=== PATIENT | male | born 1955 | race Caucasian/White ===

== ENCOUNTER 2020-01-18 15:20 | Inpatient (IN) | payer OTHER ==
[~2020-01-18] VITALS: Ht 172.7 cm; Wt 99.8 kg
[2020-01-18] MEDS ORDERED: IV NORMAL SALINE 1000ML BAG 1,000 ML IV ONE ×3 (15:45→16:45)
--- NOTE | 2020-01-18 15:47 | PHYS DOC ---
General Adult EDM: Chief Complaint: TRAUMA ALERT HPI: HPI: 65-year-old male EMS reported past medical history of seizures (unsure it pt takes medications), presents to the ED brought in by EMS after family called 911. EMS was called 3 times. On the first encounter patient had fallen down 4 steps and hit his head, patient had decision-making capacity and refused to come to the emergency department. Second EMS call was for seizure-like activity, no seizure when EMS showed up. Third ems call was concerned for altered mental status, EMS witnessed a 2-minute seizure that resolved with 5 mg of IV Versed. Glucose was 114. History and review of systems are unobtainable due to patient 's mental status and aphasia. Allergies: Allergies: Allergies Coded Allergies Type Severity Reaction Last Updated Verified Unable to Assess 01/18/20 No Physical Exam: PE: Constitutional: alert, not oriented, no distress, states "I'm sorry, ok," follows commands but when asked his name states "6, 7, 8, 9" - has inappropriate speech, obese HENT: bilateral external ears normal, oropharynx moist-dentures in place, tongue laceration to tip of tongue, no oral exudates, nose normal. [] Eyes: PERRLA-3mm bl, EOMI, conjunctiva normal, no discharge, no hemotympanum, no septal hematoma, c-collar in place by EMS Neck: Normal range of motion, no tenderness, supple, no stridor. [] Cardiovascular: Tachycardic rhythm, no murmur [] Lungs & Thorax: Bilateral breath sounds clear to auscultation [] Abdomen: Bowel sounds normal, soft, no tenderness, no masses, no pulsatile masses, no urinary or bowel incontinence, anal sensation intact Skin: Warm, dry, no erythema, no rash. [] Back: No tenderness, no CVA tenderness. [] Extremities: No tenderness, no cyanosis, no clubbing, no edema, moves all 4 extr emities -decreased movement of right upper extremity and right lower extremity Neurologic: Alert and oriented X 3, normal motor function, normal sensory function, no focal deficits noted. [] Psychologic: Affect normal, judgement normal, mood normal. [] Current Patient Data: Labs: Laboratory Tests Test 01/18/20 15:28 Glucose (Fingerstick) 114 mg/dL (70-99) H EKG: EKG: Sinus tachycardia at 104 bpm, left axis deviation, normal intervals, no T wave inversions, no ST elevations or ST depressions Radiology/Procedures: Radiology/Procedures: [IMAGING REPORT Signed PATIENT: LOI ESQUIVEL ACCOUNT: [id number] : 1955 LOCATION: ER AGE: 65 SEX: M EXAM STATUS: PRE ER ORD. PHYSICIAN: CHARLEE CAMEJO DO REASON: seizure PROCEDURE: CT HEAD AND CERVICAL SPINE WO EXAM: CT Head without IV contrast INDICATION: Reason: seizure / Spl. Instructions: / History: TECHNIQUE: Multi-detector row CT images were obtained of the head without the use of IV contrast. All CT scans performed at this facility utilize dose optimization techniques as appropriate to the exam, including the following: Automated exposure control and adjustment of the mA and/or KV according to patient size (this includes techniques or standardized protocols for targeted exams where dose is indication/reason for exam). COMPARISON: None FINDINGS: BRAIN PARENCHYMA: No evidence of acute intraparenchymal hemorrhage or infarct. Encephalomalacia in the left parafalcine superior frontal lobe is present. There is gas and radiopaque density in a 3 cm ovoid, masslike area of low density in the left superior frontal lobe that could reflect old postop changes. This is best illustrated on images 22 and 23 on axial image series 2. VENTRICLES & EXTRA-AXIAL SPACES: Ventricles are within normal limits. Basilar cisterns are patent. No pathologic extra-axial fluid collection or mass. ORBITS: Orbital contents are unremarkable. SINUSES: Visualized paranasal sinuses and mastoid air cells are clear. OSSEOUS & SOFT TISSUES: Calvarium shows healed left frontal craniotomy. No acute or aggressive appearing osseous lesions. IMPRESSION: 1. No acute intracranial pathology. 2. Postop changes from left frontal craniotomy with residual low density in the superior left frontal lobe and adjacent encephalomalacia. These could reflect changes from previous biopsy or resection of a mass. Recommend correlation with the patient's medical and surgical history. There are associated findings suggesting a . EXAM: CT Cervical Spine without IV contrast INDICATION: Reason: seizure / Spl. Instructions: / History: TECHNIQUE: Multi-detector row CT images were obtained through the cervical spine without the use of IV contrast. Post-processing sagittal and coronal reconstructed images were obtained for interpretation. All CT scans performed at this facility utilize dose optimization techniques as appropriate to the exam, including the following: Automated exposure control and adjustment of the mA and/or KV according to patient size (this includes techniques or standardized protocols for targeted exams where dose is indication/reason for exam). COMPARISON: None FINDINGS: CRANIOCERVICAL JUNCTION: Unremarkable. ALIGNMENT: Alignment is within normal limits. OSSEOUS: No evidence of fracture or bone destruction. DISC SPACES: Mild disc space narrowing and minimal endplate irregularity most conspicuous at C5-C6 and C6-C7. FACET JOINTS: Unremarkable. SPINAL CANAL: Unremarkable. NEUROFORAMINA: Unremarkable. SOFT TISSUES: Unremarkable. IMPRESSION: Minimal cervical spinal degenerative spondylosis. Otherwise unremarkable. Electronically signed by: Kiran Nino MD (01/18/2020 4:27 PM) [facility] [place] DICTATED and SIGNED BY: KIRAN NINO MD DATE: 01/18/201626 IMAGING REPORT Signed PATIENT: LOI ESQUIVEL ACCOUNT: [id number] : 1955 LOCATION: ER AGE: 65 SEX: M EXAM STATUS: REG ER ORD. PHYSICIAN: CHARLEE CAMEJO DO REASON: seizure PROCEDURE: CT ANGIOGRAPHY HEAD AND NECK STUDY: CT angiography of the head and neck INDICATION: Seizure. COMPARISON: No prior angiographic study is available for review. TECHNIQUE: Axial CT imaging of the head and neck utilizing angiography protocol and performed after the intravenous administration of 70 cc Omnipaque 350 contrast. Multiplanar reformats and 3D MIP acquisitions were obtained. Encountered areas of stenosis are measured per NASCET criteria. One or more of the following individualized dose reduction techniques were utilized for this examination: 1. Automated exposure control 2. Adjustment of the mA and/or kV according to patient size 3. Use of iterative reconstruction technique. FINDINGS: CTA NECK: Arch/Proximal Great Vessels: Predominantly noncalcified atheromatous plaque at the aortic arch. Small area of plaque ulceration at the arch as seen on image 120 series 5. The great vessel origins are patent. Area of kinking of the right subclavian artery at the location of the intercostal artery origin but without a flow-limiting stenosis. The left subclavian artery and both common carotid arteries are unremarkable. Carotid Bifurcation/Cervical ICA: Mild atheromatous plaque at and just above the carotid bulb on the right. No flow-limiting stenosis on either side to the skull base. Vertebral Arteries: The left extra cranial vertebral artery is dominant. No flow-limiting stenosis or dissection. CTA HEAD: Posterior Circulation: The intracranial left vertebral artery is dominant. The right vertebral artery does still contribute to basilar flow. No flow-limiting stenosis. The basilar artery is patent as are the adequately assessed vertebral and basilar artery branch vessels. Mainly just the P1 and P2 segments of both the posterior cerebral arteries are adequately assessed due to bolus timing. No flow-limiting stenosis or occlusion is identified. Anterior Circulation: Patent intracranial internal carotid arteries. No occlusion or flow-limiting stenosis of the central branches of either middle or anterior cerebral artery. Note is made that the more peripheral segments are difficult to closely evaluate due to bolus timing. No aneurysm is seen. Veins: Patent dural sinuses and major intracerebral veins. MISCELLANEOUS: No nodule at the upper lungs is seen that would warrant dedicated follow-up. Cervical spine findings fully detailed on the dedicated CT of this region. Left paramidline frontal lobe encephalomalacia with ex vacuo dilatation of the adjacent lateral ventricle as described on the unenhanced CT. Overlying craniotomy defect. No pathologic enhancement is appreciated in this region IMPRESSION: CT Angio Neck: 1. No hemodynamically significant stenosis or dissection of the extracranial carotid or vertebral arteries. 2. Predominantly noncalcified atheromatous plaque at the aortic arch with a small area of plaque ulceration at the arch. What is seen of the aorta is nonaneurysmal. CT Angio Head: 1. Limited assessment of the peripheral arterial segments due to bolus timing. There is no flow-limiting stenosis or occlusion of the central anterior or posterior cerebral circulation. 2. As detailed on the noncontrast CT head, left frontal craniotomy with subjacent encephalomalacia. Electronically signed by: MARTHA LOZANO MD (01/18/2020 4:36 PM) [id number] DICTATED and SIGNED BY: MARTHA LOZANO MD DATE: 01/18/20 163 Course & Med Decision Making: Course & Med Decision Making Pertinent Labs and Imaging studies reviewed. (See chart for details) Concern for uncontrolled seizure with head trauma and postictal confusion-stroke work-up started. Patient with resolution of symptoms within 30 minutes upon ED presentation. Patient reports he has a history of GERD and hypertension. Reports a history of seizure disorder but no seizure in the past 20 years. Is unaware of any prior history of stroke. CT imaging concerning for ELSA territory infarct with left frontal craniotomy. Patient's labs show renal insufficiency (no prior for baseline comparison) and elevated lactic acidosis. Repeat lactic acid pending. Patient was given IV fluids and Keppra in the ED. TIA on my differential. Patient and agreed to be admitted for MRI and neurology consultation, pt was stable at time of admission. I have spoken with the patient and/or caregivers. I have explained the patient's condition, diagnosis and treatment plan based on the information available to me at this time. I have answered the patient's and/or caregivers questions and answered any concerns. The patient and/or caregivers have as good an understanding of the patient's diagnosis, condition and treatment plan as can be expected at this point. The patient has been stabilized within the capability of the emergency department. The patient will be transported for further care and management or will be moved to an observation or inpatient service. I have communicated with the staff or medical practitioner taking over this patient's care. Trudy Disclaimer: Trudy Disclaimer: This electronic medical record was generated, in whole or in part, using a voice recognition dictation system. Departure Departure Impression: Primary Impression: Seizure Additional Impressions: Renal insufficiency Old cerebrovascular accident (CVA) without late effect Head trauma Elevated lactic acid level Disposition: ADMITTED INPATIENT Admitting Physician: JOSE ALBERTO (Dr. Chang) Condition: STABLE Justicifation of Admission Dx: Justifications for Admission: Justification of Admission Dx: Yes Stroke - Ischemic: Stroke-Ischemic Comments: seizure CHARLEE SALAZAR DO Jan 18, 2020 15:47
[2020-01-18 15:48] LABS: BASO # 0.1 x10^3/uL (0.0-0.2); BASO % 1 % (0-3); EOS # 0.2 x10^3/uL (0.0-0.7); EOS % 2 % (0-3); HEMATOCRIT 45.1 % (39.0-53.0); HEMOGLOBIN 15.1 g/dL (13.0-17.5); LYMPH # 2.1 x10^3/uL (1.0-4.8); LYMPH % 28 % (24-48); MEAN CORPUSCULAR HEMOGLOBIN 28 pg (25-35); MEAN CORPUSCULAR HGB CONC 34 g/dL (31-37); MEAN CORPUSCULAR VOLUME 83 fL (79-100); MONO # 0.4 x10^3/uL (0.0-1.1); MONO % 5 % (0-9); NEUT # 4.7 x10^3/uL (1.8-7.7); NEUT % 64 % (31-73); PLATELET COUNT 210 x10^3/uL (140-400); RED BLOOD COUNT 5.45 x10^6/uL (4.30-5.70); RED CELL DISTRIBUTION WIDTH 15.1 % (11.5-14.5); WHITE BLOOD COUNT 7.4 x10^3/uL (4.0-11.0)
[2020-01-18 15:58] LABS: CALCIUM 9.4 mg/dL (8.5-10.1); CREATININE 1.4 mg/dL (0.7-1.3); POTASSIUM 4.2 mmol/L (3.5-5.1)
[2020-01-18] MEDS ORDERED: levETIRAcetam 1,000 MG in IV DEXTROSE 5% 100ML 100 ML IV ONE (16:00)
[2020-01-18 16:02] LABS: ACETAMIN < 2 mcg/ml (10-30); ETHANOL < 10 mg/dL (0-10); SALIC < 2.8 mg/dL (2.8-20.0)
[2020-01-18 16:04] LABS: ALBUMIN 3.8 g/dL (3.4-5.0); MAGNESIUM 2.2 mg/dL (1.8-2.4); TOTAL BILIRUBIN 1.1 mg/dL (0.2-1.0); TOTAL PROTEIN 7.6 g/dL (6.4-8.2)
[2020-01-18] MEDS ORDERED: CONTRAST GIVEN. MC PRN (16:15)
[2020-01-18] MEDS ORDERED: IOHEXOL 350 MG/ML 100 ML VIAL. IV ONE (16:15)
--- NOTE | 2020-01-18 16:30 | RAD ---
EXAM: CT Head without IV contrast INDICATION: Reason: seizure / Spl. Instructions: / History: TECHNIQUE: Multi-detector row CT images were obtained of the head without the use of IV contrast. All CT scans performed at this facility utilize dose optimization techniques as appropriate to the exam, including the following: Automated exposure control and adjustment of the mA and/or KV according to patient size (this includes techniques or standardized protocols for targeted exams where dose is indication/reason for exam). COMPARISON: None FINDINGS: BRAIN PARENCHYMA: No evidence of acute intraparenchymal hemorrhage or infarct. Encephalomalacia in the left parafalcine superior frontal lobe is present. There is gas and radiopaque density in a 3 cm ovoid, masslike area of low density in the left superior frontal lobe that could reflect old postop changes. This is best illustrated on images 22 and 23 on axial image series 2. VENTRICLES & EXTRA-AXIAL SPACES: Ventricles are within normal limits. Basilar cisterns are patent. No pathologic extra-axial fluid collection or mass. ORBITS: Orbital contents are unremarkable. SINUSES: Visualized paranasal sinuses and mastoid air cells are clear. OSSEOUS & SOFT TISSUES: Calvarium shows healed left frontal craniotomy. No acute or aggressive appearing osseous lesions. IMPRESSION: 1. No acute intracranial pathology. 2. Postop changes from left frontal craniotomy with residual low density in the superior left frontal lobe and adjacent encephalomalacia. These could reflect changes from previous biopsy or resection of a mass. Recommend correlation with the patient's medical and surgical history. 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 EXAM: CT Cervical Spine without IV contrast INDICATION: Reason: seizure / Spl. Instructions: / History: TECHNIQUE: Multi-detector row CT images were obtained through the cervical spine without the use of IV contrast. Post-processing sagittal and coronal reconstructed images were obtained for interpretation. All CT scans performed at this facility utilize dose optimization techniques as appropriate to the exam, including the following: Automated exposure control and adjustment of the mA and/or KV according to patient size (this includes techniques or standardized protocols for targeted exams where dose is indication/reason for exam). COMPARISON: None FINDINGS: CRANIOCERVICAL JUNCTION: Unremarkable. ALIGNMENT: Alignment is within normal limits. OSSEOUS: No evidence of fracture or bone destruction. DISC SPACES: Mild disc space narrowing and minimal endplate irregularity most conspicuous at C5-C6 and C6-C7. FACET JOINTS: Unremarkable. SPINAL CANAL: Unremarkable. NEUROFORAMINA: Unremarkable. SOFT TISSUES: Unremarkable. IMPRESSION: Minimal cervical spinal degenerative spondylosis. Otherwise unremarkable. Electronically signed by: Chang Nino MD (01/18/2020 4:27 PM) [facility] [place]
--- NOTE | 2020-01-18 16:39 | RAD ---
STUDY: CT angiography of the head and neck INDICATION: Seizure. COMPARISON: No prior angiographic study is available for review. TECHNIQUE: Axial CT imaging of the head and neck utilizing angiography protocol and performed after the intravenous administration of 70 cc Omnipaque 350 contrast. Multiplanar reformats and 3D MIP acquisitions were obtained. Encountered areas of stenosis are measured per NASCET criteria. One or more of the following individualized dose reduction techniques were utilized for this examination: 1. Automated exposure control 2. Adjustment of the mA and/or kV according to patient size 3. Use of iterative reconstruction technique. FINDINGS: CTA NECK: Arch/Proximal Great Vessels: Predominantly noncalcified atheromatous plaque at the aortic arch. Small area of plaque ulceration at the arch as seen on image 120 series 5. The great vessel origins are patent. Area of kinking of the right subclavian artery at the location of the intercostal artery origin but without a flow-limiting stenosis. The left subclavian artery and both common carotid arteries are unremarkable. Carotid Bifurcation/Cervical ICA: Mild atheromatous plaque at and just above the carotid bulb on the right. No flow-limiting stenosis on either side to the skull base. Vertebral Arteries: The left extra cranial vertebral artery is dominant. No flow-limiting stenosis or dissection. CTA HEAD: Posterior Circulation: The intracranial left vertebral artery is dominant. The right vertebral artery does still contribute to basilar flow. No flow-limiting stenosis. The basilar artery is patent as are the adequately assessed vertebral and basilar artery branch vessels. Mainly just the P1 and P2 segments of both the posterior cerebral arteries are adequately assessed due to bolus timing. No flow-limiting stenosis or occlusion is identified. Anterior Circulation: Patent intracranial internal carotid arteries. No occlusion or flow-limiting stenosis of the central branches of either middle or anterior cerebral artery. Note is made that the more peripheral segments are difficult to closely evaluate due to bolus timing. No aneurysm is seen. Veins: Patent dural sinuses and major intracerebral veins. MISCELLANEOUS: No nodule at the upper lungs is seen that would warrant dedicated follow-up. Cervical spine findings fully detailed on the dedicated CT of this region. Left paramidline frontal lobe encephalomalacia with ex vacuo dilatation of the adjacent lateral ventricle as described on the unenhanced CT. Overlying craniotomy defect. No pathologic enhancement is appreciated in this region IMPRESSION: CT Angio Neck: 1. No hemodynamically significant stenosis or dissection of the extracranial carotid or vertebral arteries. 2. Predominantly noncalcified atheromatous plaque at the aortic arch with a small area of plaque ulceration at the arch. What is seen of the aorta is nonaneurysmal. CT Angio Head: 1. Limited assessment of the peripheral arterial segments due to bolus timing. There is no flow-limiting stenosis or occlusion of the central anterior or posterior cerebral circulation. 2. As detailed on the noncontrast CT head, left frontal craniotomy with subjacent encephalomalacia. Electronically signed by: MARTHA LOZANO MD (01/18/2020 4:36 PM) [id number]
--- NOTE | 2020-01-18 18:03 | PDOC1 ---
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 EMS was called 3 times. Initially he had fallen off a ladder and struck his head, and EMS assessed no neurological problems patient refused to the ED. Minutes after EMS left with his went to the house she returned to see him shaking on the ground, all 4 limbs and he was not able to respond to her, but EMS noted no seizure activity. And he was resting. His then contacted EMS for the third time when he was noted with significant altered mental status, EMS witnessed a 2-minute seizure that resolved with 5 mg of IV Versed. Glucose was 114. His noted he had complained of hip pain he underwent hip x-ray chest x-ray and CT neck all of which had no acute abnormalities. CT head revealed craniotomy defect and Left paramidline frontal lobe encephalomalacia with ex vacuo dilatation of the adjacent lateral ventricle. CT angiography of head and neck performed as he was noted with some initial right-sided weakness on initial evaluation. EKG showed sinus tachycardia at 104 bpm, left axis deviation, normal intervals, no T wave inversions, no ST elevations or ST depressions. Labs revealed lactic acid of 4.8, normal CBC, NA 137, K4.2, BUN 15, CR 1.4, glucose 114. On my evaluation he shows some mental slowing but is alert and oriented to location month year to date and person. He had no focal neurologic deficits. His is bedside to corroborate he is a bit slow but close to what she considers baseline. She and he also note that he has been having random seizures every year or two for the past 30 years and was only dilantin until 20 years ago when he went 1 year seizure free. He was instructed to stop drinking alcohol previously as it was thought this provoked some of his other seizures, but he has not drank alcohol for "years" now. He has not noted lack of sleep recently. He is an honorably discharged [employer] and retired [employer] worker as well as an ex-smoker for more than a decade. Admitted for further care. Past Medical History Cardiovascular: HTN CENTRAL NERVOUS SYSTEM: Seizure Past Surgical History Past Surgical History: Other (Craniotomy) Family History Family History: Hypertension Social History Smoke: Quit ALCOHOL: none Drugs: None Current Medications Current Medications Current Medications Sodium Chloride 1,000 ml @ 1,000 mls/hr 1X ONCE IV Last administered on 01/18/20at 16:17; Start 01/18/20 at 15:45; Stop 01/18/20 at 16:44; Status DC Levetiracetam 1000 mg/Dextrose 110 ml @ 440 mls/hr 1X ONCE IV Last administered on 01/18/20at 16:17; Start 01/18/20 at 16:00; Stop 01/18/20 at 16:14; Status DC Iohexol (Omnipaque 350 Mg/ml) 70 ml 1X ONCE IV Last administered on 01/18/20at 16:12; Start 01/18/20 at 16:15; Stop 01/18/20 at 16:16; Status DC Info (CONTRAST GIVEN -- Rx MONITORING) 1 each PRN DAILY PRN MC SEE COMMENTS; Start 01/18/20 at 16:15; Stop 01/20/20 at 16:14 Sodium Chloride 1,000 ml @ 1,000 mls/hr 1X ONCE IV Last administered on 01/18/20at 16:45; Start 01/18/20 at 16:45; Stop 01/18/20 at 17:44; Status DC Sodium Chloride 1,000 ml @ 1,000 mls/hr 1X ONCE IV Last administered on 01/18/20at 17:20; Start 01/18/20 at 16:45; Stop 01/18/20 at 17:44; Status DC Allergies Allergies: Coded Allergies: No Known Drug Allergies (Unverified , 01/18/20) ROS General: No: Chills, Night Sweats, Fatigue, Malaise, Appetite, Other PSYCHOLOGICAL ROS: No: Anxiety, Behavioral Disorder, Concentration difficultie, Decreased libido, Depression, Disorientation, Hallucinations, Hostility, Irritablity, Memory difficulties, Mood Swings, Obsessive thoughts, Physical abuse, Sexual abuse, Sleep disturbances, Suicidal ideation, Other Eyes: No Blurry vision, No Decreased vision, No Double vision, No Dry eyes, No Excessive tearing, No Eye Pain, No Itchy Eyes, No Loss of vision, No Photophobia, No Scotomata, No Uses contacts, No Uses glasses, No Other HEENT: No: Heacaches, Visual Changes, Hearing change, Nasal congestion, Nasal discharge, Oral lesions, Sinus pain, Sore Throat, Epistaxis, Sneezing, Snoring, Tinnitus, Vertigo, Vocal changes, Other ALLERGY AND IMMUNOLOGY: No: Hives, Insect Bite Sensitivity, Itchy/Watery Eyes, Nasal Congestion, Post Nasal Drip, Seasonal Allergies, Other Hematological and Lymphatic: No: Bleeding Problems, Blood Clots, Blood Transfusions, Brusing, Night Sweats, Pallor, Swollen Lymph Nodes, Other ENDOCRINE: No: Breast Changes, Galactorrhea, Hair Pattern Changes, Hot Flashes, Malaise/lethargy, Mood Swings, Palpitations, Polydipsia/polyuria, Skin Changes, Temperature Intolerance, Unexpected Weight Changes, Other Breast: No New/Changing Breast Lumps, No Nipple changes, No Nipple discharge, No Other Respiratory: No: Cough, Hemoptysis, Orthopnea, Pleuritic Pain, Shortness of breath, SOB with excertion, Sputum Changes, Stridor, Tachypnea, Wheezing, Other Cardiovascular: No Chest Pain, No Palpitations, No Orthopnea, No Paroxysmal Noc. Dyspnea, No Edema, No Lt Headedness, No Other Gastrointestinal: No Nausea, No Vomiting, No Abdominal Pain, No Diarrhea, No Constipation, No Melena, No Hematochezia, No Other Genitourinary: No Dysuria, No Frequency, No Incontinence, No Hematuria, No Retention, No Discharge, No Urgency, No Pain, No Flank Pain, No Other, No , No , No , No , No , No , No Musculoskeletal: No Gait Disturbance, No Joint Pain, No Joint Stiffness, No Joint Swelling, No Muscle Pain, No Muscular Weakness, No Pain In:, No Swelling In:, No Other Neurological: Yes Memory Loss, Yes Seizures; No Behavorial Changes, No Bowel/Bladder ControlChng, No Confusion, No Dizziness, No Gait Disturbance, No Headaches, No Impaired Coord/balance, No Numbness/Tingling, No Speech Problems, No Tremors, No Visual Changes, No Weakness, No Other Skin: No Dry Skin, No Eczema, No Hair Changes, No Lumps, No Mole Changes, No Mottling, No Nail Changes, No Pruritus, No Rash, No Skin Lesion Changes, No Other, No Acne Physical Exam General: Alert, Oriented X3, Cooperative, No acute distress HEENT: Atraumatic, PERRLA, EOMI, Mucous membr. moist/pink Lungs: Clear to auscultation, Normal air movement Heart: S1S2, RRR, no thrills, no rubs, no gallops, no murmurs Abdomen: Normal bowel sounds, Soft, No tenderness, No hepatosplenomegaly, No masses Rectal Exam: not examined Extremities: No clubbing, No cyanosis, No edema, Normal pulses, No tenderness/swelling Skin: No rashes, No breakdown, No significant lesion Neuro: Normal gait, Normal speech, Strength at 5/5 X4 ext, Normal tone, Sensation intact, Cranial nerves 3-12 NL, Reflexes 2+ Psych/Mental Status: Mental status NL, Mood NL Vitals Vitals Vital Signs Date Time Temp Pulse Resp B/P (MAP) Pulse Ox O2 Delivery O2 Flow Rate FiO2 01/18/20 16:35 105 18 Room Air 01/18/20 15:41 98.7 149/83 (105) 89 98.7 Labs Labs Laboratory Tests Test 01/18/20 15:28 01/18/20 15:35 Glucose (Fingerstick) 114 mg/dL (70-99) White Blood Count 7.4 x10^3/uL (4.0-11.0) Red Blood Count 5.45 x10^6/uL (4.30-5.70) Hemoglobin 15.1 g/dL (13.0-17.5) Hematocrit 45.1 % (39.0-53.0) Mean Corpuscular Volume 83 fL (79-100) Mean Corpuscular Hemoglobin 28 pg (25-35) Mean Corpuscular Hemoglobin Concent 34 g/dL (31-37) Red Cell Distribution Width 15.1 % (11.5-14.5) Platelet Count 210 x10^3/uL (140-400) Neutrophils (%) (Auto) 64 % (31-73) Lymphocytes (%) (Auto) 28 % (24-48) Monocytes (%) (Auto) 5 % (0-9) Eosinophils (%) (Auto) 2 % (0-3) Basophils (%) (Auto) 1 % (0-3) Neutrophils # (Auto) 4.7 x10^3/uL (1.8-7.7) Lymphocytes # (Auto) 2.1 x10^3/uL (1.0-4.8) Monocytes # (Auto) 0.4 x10^3/uL (0.0-1.1) Eosinophils # (Auto) 0.2 x10^3/uL (0.0-0.7) Basophils # (Auto) 0.1 x10^3/uL (0.0-0.2) Sodium Level 137 mmol/L (136-145) Potassium Level 4.2 mmol/L (3.5-5.1) Chloride Level 102 mmol/L (98-107) Carbon Dioxide Level 25 mmol/L (21-32) Anion Gap 10 (6-14) Blood Urea Nitrogen 15 mg/dL (8-26) Creatinine 1.4 mg/dL (0.7-1.3) Estimated GFR (Cockcroft-Gault) 51.0 BUN/Creatinine Ratio 11 (6-20) Glucose Level 99 mg/dL (70-99) Lactic Acid Level 4.8 mmol/L (0.4-2.0) Calcium Level 9.4 mg/dL (8.5-10.1) Magnesium Level 2.2 mg/dL (1.8-2.4) Total Bilirubin 1.1 mg/dL (0.2-1.0) Aspartate Amino Transf (AST/SGOT) 25 U/L (15-37) Alanine Aminotransferase (ALT/SGPT) 20 U/L (16-63) Alkaline Phosphatase 81 U/L (46-116) Ammonia 15 mcmol/L (11-34) Creatine Kinase 186 U/L (39-308) Troponin I Quantitative < 0.017 ng/mL (0.000-0.055) Total Protein 7.6 g/dL (6.4-8.2) Albumin 3.8 g/dL (3.4-5.0) Albumin/Globulin Ratio 1.0 (1.0-1.7) Salicylates Level < 2.8 mg/dL (2.8-20.0) Salicylate Last Dose Date Unknown Salicylate Last Dose Time Unknown Acetaminophen Level < 2 mcg/ml (10-30) Acetaminophen Last Dose Date Unknown Acetaminophen Last Dose Time Unknown Ethyl Alcohol Level < 10 mg/dL (0-10) Laboratory Tests Test 01/18/20 15:28 01/18/20 15:35 Glucose (Fingerstick) 114 mg/dL (70-99) White Blood Count 7.4 x10^3/uL (4.0-11.0) Red Blood Count 5.45 x10^6/uL (4.30-5.70) Hemoglobin 15.1 g/dL (13.0-17.5) Hematocrit 45.1 % (39.0-53.0) Mean Corpuscular Volume 83 fL (79-100) Mean Corpuscular Hemoglobin 28 pg (25-35) Mean Corpuscular Hemoglobin Concent 34 g/dL (31-37) Red Cell Distribution Width 15.1 % (11.5-14.5) Platelet Count 210 x10^3/uL (140-400) Neutrophils (%) (Auto) 64 % (31-73) Lymphocytes (%) (Auto) 28 % (24-48) Monocytes (%) (Auto) 5 % (0-9) Eosinophils (%) (Auto) 2 % (0-3) Basophils (%) (Auto) 1 % (0-3) Neutrophils # (Auto) 4.7 x10^3/uL (1.8-7.7) Lymphocytes # (Auto) 2.1 x10^3/uL (1.0-4.8) Monocytes # (Auto) 0.4 x10^3/uL (0.0-1.1) Eosinophils # (Auto) 0.2 x10^3/uL (0.0-0.7) Basophils # (Auto) 0.1 x10^3/uL (0.0-0.2) Sodium Level 137 mmol/L (136-145) Potassium Level 4.2 mmol/L (3.5-5.1) Chloride Level 102 mmol/L (98-107) Carbon Dioxide Level 25 mmol/L (21-32) Anion Gap 10 (6-14) Blood Urea Nitrogen 15 mg/dL (8-26) Creatinine 1.4 mg/dL (0.7-1.3) Estimated GFR (Cockcroft-Gault) 51.0 BUN/Creatinine Ratio 11 (6-20) Glucose Level 99 mg/dL (70-99) Lactic Acid Level 4.8 mmol/L (0.4-2.0) Calcium Level 9.4 mg/dL (8.5-10.1) Magnesium Level 2.2 mg/dL (1.8-2.4) Total Bilirubin 1.1 mg/dL (0.2-1.0) Aspartate Amino Transf (AST/SGOT) 25 U/L (15-37) Alanine Aminotransferase (ALT/SGPT) 20 U/L (16-63) Alkaline Phosphatase 81 U/L (46-116) Ammonia 15 mcmol/L (11-34) Creatine Kinase 186 U/L (39-308) Troponin I Quantitative < 0.017 ng/mL (0.000-0.055) Total Protein 7.6 g/dL (6.4-8.2) Albumin 3.8 g/dL (3.4-5.0) Albumin/Globulin Ratio 1.0 (1.0-1.7) Salicylates Level < 2.8 mg/dL (2.8-20.0) Salicylate Last Dose Date Unknown Salicylate Last Dose Time Unknown Acetaminophen Level < 2 mcg/ml (10-30) Acetaminophen Last Dose Date Unknown Acetaminophen Last Dose Time Unknown Ethyl Alcohol Level < 10 mg/dL (0-10) Images Images CTA NECK: Arch/Proximal Great Vessels: Predominantly noncalcified atheromatous plaque at the aortic arch. Small area of plaque ulceration at the arch as seen on image 120 series 5. The great vessel origins are patent. Area of kinking of the right subclavian artery at the location of the intercostal artery origin but without a flow-limiting stenosis. The left subclavian artery and both common carotid arteries are unremarkable. Carotid Bifurcation/Cervical ICA: Mild atheromatous plaque at and just above the carotid bulb on the right. No flow-limiting stenosis on either side to the skull base. Vertebral Arteries: The left extra cranial vertebral artery is dominant. No flow-limiting stenosis or dissection. CTA HEAD: Posterior Circulation: The intracranial left vertebral artery is dominant. The right vertebral artery does still contribute to basilar flow. No flow-li miting stenosis. The basilar artery is patent as are the adequately assessed vertebral and basilar artery branch vessels. Mainly just the P1 and P2 segments of both the posterior cerebral arteries are adequately assessed due to bolus timing. No flow-limiting stenosis or occlusion is identified. Anterior Circulation: Patent intracranial internal carotid arteries. No occlusion or flow-limiting stenosis of the central branches of either middle or anterior cerebral artery. Note is made that the more peripheral segments are difficult to closely evaluate due to bolus timing. No aneurysm is seen. Veins: Patent dural sinuses and major intracerebral veins. MISCELLANEOUS: No nodule at the upper lungs is seen that would warrant dedicated follow-up. Cervical spine findings fully detailed on the dedicated CT of this region. Left paramidline frontal lobe encephalomalacia with ex vacuo dilatation of the adjacent lateral ventricle as described on the unenhanced CT. Overlying craniotomy defect. No pathologic enhancement is appreciated in this region IMPRESSION: CT Angio Neck: 1. No hemodynamically significant stenosis or dissection of the extracranial carotid or vertebral arteries. 2. Predominantly noncalcified atheromatous plaque at the aortic arch with a small area of plaque ulceration at the arch. What is seen of the aorta is nonaneurysmal. CT Angio Head: 1. Limited assessment of the peripheral arterial segments due to bolus timing. There is no flow-limiting stenosis or occlusion of the central anterior or posterior cerebral circulation. 2. As detailed on the noncontrast CT head, left frontal craniotomy with subjacent encephalomalacia. EXAM: PORTABLE CHEST 1V INDICATION: Reason: seizure / Spl. Instructions: / History: . TECHNIQUE: Single supine portable AP view COMPARISON: None FINDINGS: Heart is upper normal in size. The great vessels appear unremarkable. Supine portable AP projection. There is no hilar or mediastinal mass. The lungs are hypoventilatory and show prominence of the pulmonary vascular markings centrally. There is no pleural effusion or pneumothorax. There are no significant osseous abnormalities. IMPRESSION: Mild central pulmonary vascular congestion. Otherwise no acute findings on single view chest x-ray. PROCEDURE: PELVIS STUDY DATE: 01/18/2020 CLINICAL INDICATION / HISTORY: Reason: seizure / Spl. Instructions: / History: . TECHNIQUE: Single portable AP view of the pelvis was obtained. COMPARISON: None FINDINGS: The osseous structures are normally mineralized. There is normal bony alignment present with the femoral heads well-seated within the acetabuli. There is no evidence of acute fracture or dislocation identified. The overlying soft tissues are grossly unremarkable. The right hip is in external rotation, partly obscuring evaluation of the right femoral neck. IMPRESSION: Unremarkable examination of the pelvis. Electronically signed by: Kiran Nino MD (01/18/2020 5:47 PM) DICTATED AND SIGNED BY: IKRAN NINO MD DATE: 01/18/20 2066 CC: NO PCP; CHARLEE CAMEJO DO ~ EXAM: CT Head without IV contrast INDICATION: Reason: seizure / Spl. Instructions: / History: TECHNIQUE: Multi-detector row CT images were obtained of the head without the use of IV contrast. All CT scans performed at this facility utilize dose optimization techniques as appropriate to the exam, including the following: Automated exposure control and adjustment of the mA and/or KV according to patient size (this includes techniques or standardized protocols for targeted exams where dose is indication/reason for exam). COMPARISON: None FINDINGS: BRAIN PARENCHYMA: No evidence of acute intraparenchymal hemorrhage or infarct. Encephalomalacia in the left parafalcine superior frontal lobe is present. There is gas and radiopaque density in a 3 cm ovoid, masslike area of low density in the left superior frontal lobe that could reflect old postop changes. This is best illustrated on images 22 and 23 on axial image series 2. VENTRICLES & EXTRA-AXIAL SPACES: Ventricles are within normal limits. Basilar cisterns are patent. No pathologic extra-axial fluid collection or mass. ORBITS: Orbital contents are unremarkable. SINUSES: Visualized paranasal sinuses and mastoid air cells are clear. OSSEOUS & SOFT TISSUES: Calvarium shows healed left frontal craniotomy. No acute or aggressive appearing osseous lesions. IMPRESSION: 1. No acute intracranial pathology. 2. Postop changes from left frontal craniotomy with residual low density in the superior left frontal lobe and adjacent encephalomalacia. These could reflect changes from previous biopsy or resection of a mass. Recommend correlation with the patient's medical and surgical history. 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 EXAM: CT Cervical Spine without IV contrast INDICATION: Reason: seizure / Spl. Instructions: / History: TECHNIQUE: Multi-detector row CT images were obtained through the cervical spine without the use of IV contrast. Post-processing sagittal and coronal reconstructed images were obtained for interpretation. All CT scans performed at this facility utilize dose optimization techniques as appropriate to the exam, including the following: Automated exposure control and adjustment of the mA and/or KV according to patient size (this includes techniques or standardized protocols for targeted exams where dose is indication/reason for exam). COMPARISON: None FINDINGS: CRANIOCERVICAL JUNCTION: Unremarkable. ALIGNMENT: Alignment is within normal limits. OSSEOUS: No evidence of fracture or bone destruction. DISC SPACES: Mild disc space narrowing and minimal endplate irregularity most conspicuous at C5-C6 and C6-C7. FACET JOINTS: Unremarkable. SPINAL CANAL: Unremarkable. NEUROFORAMINA: Unremarkable. SOFT TISSUES: Unremarkable. IMPRESSION: Minimal cervical spinal degenerative spondylosis. Otherwise unremarkable. VTE Prophylaxis Ordered VTE Prophylaxis Devices: No VTE Pharmacological Prophylaxi: Yes Assessment/Plan Assessment/Plan A/P: Seizure - recurrent. given IV keppra. He was remotely on dilantin and is not opposed to this, however at this time no further seizures, will cont keppra and consult neurology Acute encephalopathy - likely post-ictal confusion Right sided weakness - likely post-ictal effect. CTA head and neck negative for occlusion. ASA therapy, consult PT/OT/[employer] and neurology. No indication for tPA as his symptoms resolved Acute Renal insufficiency - likely vasomotor nephropathy, will hydrate H/o craniotomy - he and his note this was for removal of an AVM in the 1980s and he did begin having seizures after that Elevated lactic acid level - almost certainly seizure related, will trend HTN - will reconcile home medications with pharmacy and continue FEN - General diet pending bedside swallow evaluation PPX - heparin SC 5000 u tid FULL CODE Dispo - inpatient for recurrent seizures. Justicifation of Admission Dx: Justifications for Admission: Justification of Admission Dx: Yes NANY GUERRA MD Jan 18, 2020 18:03
[2020-01-18 20:05] VITALS: BP 177/113
[2020-01-18] MEDS ORDERED: IV NORMAL SALINE 1000ML BAG 1,000 ML IV SCH (20:13)
[2020-01-18] MEDS ORDERED: ACETAMINOPHEN 650 MG SUPP.RECT. PR PRN (20:15)
[2020-01-18] MEDS ORDERED: MAGNESIUM HYDROXIDE 2,400 MG/30 ML ORAL.SUSP. PO PRN (20:15)
[2020-01-18] MEDS ORDERED: LABETALOL 20 MG/4 ML DISP.SYRIN. IVP PRN (20:15)
[2020-01-18] MEDS ORDERED: ACETAMINOPHEN 325 MG TABLET. PO PRN (20:15)
[2020-01-18] MEDS ORDERED: ASPIRIN RECTAL 300 MG SUPP. PR PRN (20:15)
[2020-01-18] MEDS ORDERED: ONDANSETRON PF 4 MG/2 ML VIAL. IVP PRN (20:15)
[2020-01-18] MEDS ORDERED: hydrALAZINE 20 MG/ML VIAL. IVP PRN (21:15)
[2020-01-18] MEDS ORDERED: CALC500T30 PO (21:30)
[2020-01-18] MEDS ORDERED: amLODIPine BESYLATE 5 MG TABLET PO SCH (21:30)
[2020-01-18] MEDS ORDERED: MAGN400T30 PO (21:30)
[2020-01-18] MEDS ORDERED: PANT20TA2 PO (21:30)
[2020-01-18] MEDS ORDERED: LISI-130 PO (21:30)
[2020-01-18] MEDS ORDERED: amLODIPine BESYLATE 5 MG TABLET PO ONE ×2 (21:45)
[2020-01-18] MEDS: HEPARIN for SUB-Q USE 5,000 UNIT/ML VIAL. SQ SCH (21:55)
[2020-01-18 22:40] VITALS: BP 157/84
[2020-01-19 02:33] VITALS: BP 127/72
[2020-01-19 05:34] LABS: CALCIUM 8.6 mg/dL (8.5-10.1); GFR 75.2; POTASSIUM 3.9 mmol/L (3.5-5.1)
[2020-01-19 05:40] LABS: CHOLESTEROL/HDL RATIO 6.2
[2020-01-19] MEDS: HEPARIN for SUB-Q USE 5,000 UNIT/ML VIAL. SQ SCH (06:18)
[2020-01-19 07:00] VITALS: BP 142/84
[2020-01-19] MEDS ORDERED: ASPIRIN ENTERIC COATED 325 MG TABLET.DR. PO SCH (08:00)
--- NOTE | 2020-01-19 08:30 | PDOC2 ---
NEUROLOGY CONSULT Date of Service DOS: DATE: 01/19/20 TIME: 08:22 Reason for Consult Reason for Consult: Seizure Referring Physician Referring Physician: Dr. 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 He says that often after concussions, he has a seizure within the next 24 hours. Yesterday he was climbing a ladder and slipped. He is certain that he did not have a seizure at that time. He did hit his head. Emergency medical services came and found no issues and the patient refused transport. Minutes after emergency medical services left, he had convulsive activity. When emergency medical services returned, he had a two-minute seizure for which he was given Versed.. The last time this happened he struck his head with a wrench and had a seizure, that was about 10 years ago. He feels fine this morning and would like to go home. Past Medical History Cardiovascular: HTN, Hyperlipidemia CENTRAL NERVOUS SYSTEM: Seizure, Other (Left frontal arteriovenous malformation) GI: GERD Musculoskeletal: low back pain, Other (Nasal fractures) Renal/: UTI, Benign prostatic enlarg. Past Surgical History Past Surgical History: Other (Left frontal craniotomy) Family History Family History: Other (COPD) Social History Social History , ex-smoker, used to drink heavily but none in several years, no street drugs, retired Current Medications Current Medications Current Medications Sodium Chloride 1,000 ml @ 1,000 mls/hr 1X ONCE IV Last administered on 01/18/20at 16:17; Start 01/18/20 at 15:45; Stop 01/18/20 at 16:44; Status DC Levetiracetam 1000 mg/Dextrose 110 ml @ 440 mls/hr 1X ONCE IV Last administered on 01/18/20at 16:17; Start 01/18/20 at 16:00; Stop 01/18/20 at 16:14; Status DC Iohexol (Omnipaque 350 Mg/ml) 70 ml 1X ONCE IV Last administered on 01/18/20at 16:12; Start 01/18/20 at 16:15; Stop 01/18/20 at 16:16; Status DC Info (CONTRAST GIVEN -- Rx MONITORING) 1 each PRN DAILY PRN MC SEE COMMENTS; Start 01/18/20 at 16:15; Stop 01/20/20 at 16:14 Sodium Chloride 1,000 ml @ 1,000 mls/hr 1X ONCE IV Last administered on 01/18/20at 16:45; Start 01/18/20 at 16:45; Stop 01/18/20 at 17:44; Status DC Sodium Chloride 1,000 ml @ 1,000 mls/hr 1X ONCE IV Last administered on 01/18/20at 17:20; Start 01/18/20 at 16:45; Stop 01/18/20 at 17:44; Status DC Levetiracetam (Keppra) 1,000 mg BID PO ; Start 01/19/20 at 09:00; Stop 01/18/20 at 21:04; Status DC Heparin Sodium (Porcine) (Heparin Sodium) 5,000 unit Q8HRS SQ Last administered on 01/19/20at 06:18; Start 01/18/20 at 22:00 Sodium Chloride 1,000 ml @ 100 mls/hr Q10H IV ; Start 01/18/20 at 20:13; Stop 01/18/20 at 21:14; Status DC Labetalol HCl (Normodyne Iv Push) 10 mg PRN Q10MIN PRN IVP hyperten; Start 01/18/20 at 20:15 Acetaminophen (Tylenol) 650 mg PRN Q6HRS PRN PO TEMP > 100.4F; Start 01/18/20 at 20:15 Acetaminophen (Tylenol Supp) 650 mg PRN Q4HRS PRN WA TEMP > 100.4F; Start 01/18/20 at 20:15 Magnesium Hydroxide (Milk Of Magnesia) 2,400 mg PRN DAILY PRN PO CONSTIPATION; Start 01/18/20 at 20:15 Aspirin (Ecotrin) 325 mg DAILYWBKFT PO ; Start 01/19/20 at 08:00 Aspirin (Aspirin Rectal Supp) 300 mg PRN DAILY PRN WA IF UNABLE TO TAKE PO; Start 01/18/20 at 20:15 Ondansetron HCl (Zofran) 4 mg PRN Q6HRS PRN IVP NAUSEA/VOMITING; Start 01/18/20 at 20:15 Levetiracetam (Keppra) 500 mg Q12HR PO ; Start 01/19/20 at 09:00 Amlodipine Besylate (Norvasc) 5 mg 1X ONCE PO ; Start 01/18/20 at 21:45; Stop 01/18/20 at 21:46; Status DC Amlodipine Besylate (Norvasc) 5 mg 1X ONCE PO ; Start 01/18/20 at 21:45; Stop 01/18/20 at 21:26; Status DC Hydralazine HCl (Apresoline Inj) 10 mg PRN Q4HRS PRN IVP ELEVATED BP, SEE COMMENTS Last administered on 01/18/20at 21:49; Start 01/18/20 at 21:15 Amlodipine Besylate (Norvasc) 10 mg QHS PO ; Start 01/18/20 at 21:30; Stop 01/18/20 at 21:30; Status DC Amlodipine Besylate (Norvasc) 10 mg QHS PO Last administered on 01/18/20at 21:51; Start 01/19/20 at 21:00 Active Scripts Active Reported Protonix (Pantoprazole Sodium) 20 Mg Tablet.dr 20 Mg PO DAILY PRN Calcium (Calcium Carbonate) 500 Mg Tablet 500 Mg PO DAILY Magnesium (Magnesium Oxide) 400 Mg Tablet 400 Mg PO DAILY Lisinopril 40 Mg Tablet 40 Mg PO DAILY Allergies Allergies: Coded Allergies: No Known Drug Allergies (Unverified , 01/18/20) ROS Review of System Negative for fever, chills, weight loss, shortness of breath, chest pain, indigestion, hematochezia, melena, and dysuria. Full 14-point review of systems is negative. Physical Exam Physical Examination General: Well-developed, well-nourished white male in no acute distress HEENT: Normocephalic andatraumatic. Temporal arteriespulsatile and nontender. Neck: Supple without bruit, no meningismus Musculoskeletal: Stability:see neurologic. Gait exam:see neurologic. Tone:see neurologic.Strength:see neurologic. Neurological: Mental Status:intact, orientation, memory, attention span/concentration, language, fund of knowledge normal. Cranial Nerves:Pupils equal and reactive to light, extraocular movements areintact, visual garcia are full to confrontation. Facial sensation is normal. There is no facial asymmetry. Vestibulo-ocular reflex is intact. Palate elevates and tongue protrudes in midline. All other cranial related problems are negative except as mentioned before.Reflexes:2+ and symmetric with flexor plantar responses. Motor:5/5 strength with normal tone and bulk. Coordination:Finger-nose finger and lvzh-[id number] testing are normal. Rapid alternating movements and fine finger movements are intact. Gait:Normal, including tandem, shows a little bit of lack of caution getting out of bed too quickly, becomes entangled in the bed sheets. Sensory:Normal pinprick, vibration, light touch, proprioception. Vitals VITALS Vital Signs Date Time Temp Pulse Resp B/P (MAP) Pulse Ox O2 Delivery O2 Flow Rate FiO2 01/19/20 07:00 98.4 67 18 142/84 (103) 95 Room Air 98.4 01/18/20 16:21 2.0 Labs Labs Laboratory Tests Test 01/18/20 15:28 01/18/20 15:35 01/19/20 00:30 01/19/20 04:30 Glucose (Fingerstick) 114 mg/dL (70-99) White Blood Count 7.4 x10^3/uL (4.0-11.0) Red Blood Count 5.45 x10^6/uL (4.30-5.70) Hemoglobin 15.1 g/dL (13.0-17.5) Hematocrit 45.1 % (39.0-53.0) Mean Corpuscular Volume 83 fL (79-100) Mean Corpuscular Hemoglobin 28 pg (25-35) Mean Corpuscular Hemoglobin Concent 34 g/dL (31-37) Red Cell Distribution Width 15.1 % (11.5-14.5) Platelet Count 210 x10^3/uL (140-400) Neutrophils (%) (Auto) 64 % (31-73) Lymphocytes (%) (Auto) 28 % (24-48) Monocytes (%) (Auto) 5 % (0-9) Eosinophils (%) (Auto) 2 % (0-3) Basophils (%) (Auto) 1 % (0-3) Neutrophils # (Auto) 4.7 x10^3/uL (1.8-7.7) Lymphocytes # (Auto) 2.1 x10^3/uL (1.0-4.8) Monocytes # (Auto) 0.4 x10^3/uL (0.0-1.1) Eosinophils # (Auto) 0.2 x10^3/uL (0.0-0.7) Basophils # (Auto) 0.1 x10^3/uL (0.0-0.2) Sodium Level 137 mmol/L (136-145) 139 mmol/L (136-145) Potassium Level 4.2 mmol/L (3.5-5.1) 3.9 mmol/L (3.5-5.1) Chloride Level 102 mmol/L (98-107) 105 mmol/L (98-107) Carbon Dioxide Level 25 mmol/L (21-32) 25 mmol/L (21-32) Anion Gap 10 (6-14) 9 (6-14) Blood Urea Nitrogen 15 mg/dL (8-26) 13 mg/dL (8-26) Creatinine 1.4 mg/dL (0.7-1.3) 1.0 mg/dL (0.7-1.3) Estimated GFR (Cockcroft-Gault) 51.0 75.2 BUN/Creatinine Ratio 11 (6-20) Glucose Level 99 mg/dL (70-99) 102 mg/dL (70-99) Lactic Acid Level 4.8 mmol/L (0.4-2.0) 1.8 mmol/L (0.4-2.0) Calcium Level 9.4 mg/dL (8.5-10.1) 8.6 mg/dL (8.5-10.1) Magnesium Level 2.2 mg/dL (1.8-2.4) Total Bilirubin 1.1 mg/dL (0.2-1.0) Aspartate Amino Transf (AST/SGOT) 25 U/L (15-37) Alanine Aminotransferase (ALT/SGPT) 20 U/L (16-63) Alkaline Phosphatase 81 U/L (46-116) Ammonia 15 mcmol/L (11-34) Creatine Kinase 186 U/L (39-308) Troponin I Quantitative < 0.017 ng/mL (0.000-0.055) Total Protein 7.6 g/dL (6.4-8.2) Albumin 3.8 g/dL (3.4-5.0) Albumin/Globulin Ratio 1.0 (1.0-1.7) Salicylates Level < 2.8 mg/dL (2.8-20.0) Salicylate Last Dose Date Unknown Salicylate Last Dose Time Unknown Acetaminophen Level < 2 mcg/ml (10-30) Acetaminophen Last Dose Date Unknown Acetaminophen Last Dose Time Unknown Ethyl Alcohol Level < 10 mg/dL (0-10) Phosphorus Level 2.6 mg/dL (2.6-4.7) Thyroid Stimulating Hormone (TSH) 0.569 uIU/mL (0.358-3.74) Triglycerides Level 97 mg/dL (0-150) Cholesterol Level 198 mg/dL (0-200) LDL Cholesterol, Calculated 147 mg/dL (0-100) VLDL Cholesterol, Calculated 19 mg/dL (0-40) Non-HDL Cholesterol Calculated 166 mg/dL (0-129) HDL Cholesterol 32 mg/dL (40-60) Cholesterol/HDL Ratio 6.2 Laboratory Tests Test 01/18/20 15:28 01/18/20 15:35 01/19/20 00:30 01/19/20 04:30 Glucose (Fingerstick) 114 mg/dL (70-99) White Blood Count 7.4 x10^3/uL (4.0-11.0) Red Blood Count 5.45 x10^6/uL (4.30-5.70) Hemoglobin 15.1 g/dL (13.0-17.5) Hematocrit 45.1 % (39.0-53.0) Mean Corpuscular Volume 83 fL (79-100) Mean Corpuscular Hemoglobin 28 pg (25-35) Mean Corpuscular Hemoglobin Concent 34 g/dL (31-37) Red Cell Distribution Width 15.1 % (11.5-14.5) Platelet Count 210 x10^3/uL (140-400) Neutrophils (%) (Auto) 64 % (31-73) Lymphocytes (%) (Auto) 28 % (24-48) Monocytes (%) (Auto) 5 % (0-9) Eosinophils (%) (Auto) 2 % (0-3) Basophils (%) (Auto) 1 % (0-3) Neutrophils # (Auto) 4.7 x10^3/uL (1.8-7.7) Lymphocytes # (Auto) 2.1 x10^3/uL (1.0-4.8) Monocytes # (Auto) 0.4 x10^3/uL (0.0-1.1) Eosinophils # (Auto) 0.2 x10^3/uL (0.0-0.7) Basophils # (Auto) 0.1 x10^3/uL (0.0-0.2) Sodium Level 137 mmol/L (136-145) 139 mmol/L (136-145) Potassium Level 4.2 mmol/L (3.5-5.1) 3.9 mmol/L (3.5-5.1) Chloride Level 102 mmol/L (98-107) 105 mmol/L (98-107) Carbon Dioxide Level 25 mmol/L (21-32) 25 mmol/L (21-32) Anion Gap 10 (6-14) 9 (6-14) Blood Urea Nitrogen 15 mg/dL (8-26) 13 mg/dL (8-26) Creatinine 1.4 mg/dL (0.7-1.3) 1.0 mg/dL (0.7-1.3) Estimated GFR (Cockcroft-Gault) 51.0 75.2 BUN/Creatinine Ratio 11 (6-20) Glucose Level 99 mg/dL (70-99) 102 mg/dL (70-99) Lactic Acid Level 4.8 mmol/L (0.4-2.0) 1.8 mmol/L (0.4-2.0) Calcium Level 9.4 mg/dL (8.5-10.1) 8.6 mg/dL (8.5-10.1) Magnesium Level 2.2 mg/dL (1.8-2.4) Total Bilirubin 1.1 mg/dL (0.2-1.0) Aspartate Amino Transf (AST/SGOT) 25 U/L (15-37) Alanine Aminotransferase (ALT/SGPT) 20 U/L (16-63) Alkaline Phosphatase 81 U/L (46-116) Ammonia 15 mcmol/L (11-34) Creatine Kinase 186 U/L (39-308) Troponin I Quantitative < 0.017 ng/mL (0.000-0.055) Total Protein 7.6 g/dL (6.4-8.2) Albumin 3.8 g/dL (3.4-5.0) Albumin/Globulin Ratio 1.0 (1.0-1.7) Salicylates Level < 2.8 mg/dL (2.8-20.0) Salicylate Last Dose Date Unknown Salicylate Last Dose Time Unknown Acetaminophen Level < 2 mcg/ml (10-30) Acetaminophen Last Dose Date Unknown Acetaminophen Last Dose Time Unknown Ethyl Alcohol Level < 10 mg/dL (0-10) Phosphorus Level 2.6 mg/dL (2.6-4.7) Thyroid Stimulating Hormone (TSH) 0.569 uIU/mL (0.358-3.74) Triglycerides Level 97 mg/dL (0-150) Cholesterol Level 198 mg/dL (0-200) LDL Cholesterol, Calculated 147 mg/dL (0-100) VLDL Cholesterol, Calculated 19 mg/dL (0-40) Non-HDL Cholesterol Calculated 166 mg/dL (0-129) HDL Cholesterol 32 mg/dL (40-60) Cholesterol/HDL Ratio 6.[address] Head without IV contrast INDICATION: Reason: seizure / Spl. Instructions: / History: TECHNIQUE: Multi-detector row CT images were obtained of the head without the use of IV contrast. All CT scans performed at this facility utilize dose optimization techniques as appropriate to the exam, including the following: Automated exposure control and adjustment of the mA and/or KV according to patient size (this includes techniques or standardized protocols for targeted exams where dose is indication/reason for exam). COMPARISON: None FINDINGS: BRAIN PARENCHYMA: No evidence of acute intraparenchymal hemorrhage or infarct. Encephalomalacia in the left parafalcine superior frontal lobe is present. There is gas and radiopaque density in a 3 cm ovoid, masslike area of low density in the left superior frontal lobe that could reflect old postop changes. This is best illustrated on images 22 and 23 on axial image series 2. VENTRICLES & EXTRA-AXIAL SPACES: Ventricles are within normal limits. Basilar cisterns are patent. No pathologic extra-axial fluid collection or mass. ORBITS: Orbital contents are unremarkable. SINUSES: Visualized paranasal sinuses and mastoid air cells are clear. OSSEOUS & SOFT TISSUES: Calvarium shows healed left frontal craniotomy. No acute or aggressive appearing osseous lesions. IMPRESSION: 1. No acute intracranial pathology. 2. Postop changes from left frontal craniotomy with residual low density in the superior left frontal lobe and adjacent encephalomalacia. These could reflect changes from previous biopsy or resection of a mass. Recommend correlation with the patient's medical and surgical history. 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 EXAM: CT Cervical Spine without IV contrast INDICATION: Reason: seizure / Spl. Instructions: / History: TECHNIQUE: Multi-detector row CT images were obtained through the cervical spine without the use of IV contrast. Post-processing sagittal and coronal reconstructed images were obtained for interpretation. All CT scans performed at this facility utilize dose optimization techniques as appropriate to the exam, including the following: Automated exposure control and adjustment of the mA and/or KV according to patient size (this includes techniques or standardized protocols for targeted exams where dose is indication/reason for exam). COMPARISON: None FINDINGS: CRANIOCERVICAL JUNCTION: Unremarkable. ALIGNMENT: Alignment is within normal limits. OSSEOUS: No evidence of fracture or bone destruction. DISC SPACES: Mild disc space narrowing and minimal endplate irregularity most conspicuous at C5-C6 and C6-C7. FACET JOINTS: Unremarkable. SPINAL CANAL: Unremarkable. NEUROFORAMINA: Unremarkable. SOFT TISSUES: Unremarkable. IMPRESSION: Minimal cervical spinal degenerative spondylosis. Otherwise unremarkable. CT angiography of the head and neck INDICATION: Seizure. COMPARISON: No prior angiographic study is available for review. TECHNIQUE: Axial CT imaging of the head and neck utilizing angiography protocol and performed after the intravenous administration of 70 cc Omnipaque 350 contrast. Multiplanar reformats and 3D MIP acquisitions were obtained. Encountered areas of stenosis are measured per NASCET criteria. One or more of the following individualized dose reduction techniques were utilized for this examination: 1. Automated exposure control 2. Adjustment of the mA and/or kV according to patient size 3. Use of iterative reconstruction technique. FINDINGS: CTA NECK: Arch/Proximal Great Vessels: Predominantly noncalcified atheromatous plaque at the aortic arch. Small area of plaque ulceration at the arch as seen on image 120 series 5. The great vessel origins are patent. Area of kinking of the right subclavian artery at the location of the intercostal artery origin but without a flow-limiting stenosis. The left subclavian artery and both common carotid arteries are unremarkable. Carotid Bifurcation/Cervical ICA: Mild atheromatous plaque at and just above the carotid bulb on the right. No flow-limiting stenosis on either side to the skull base. Vertebral Arteries: The left extra cranial vertebral artery is dominant. No flow-limiting stenosis or dissection. CTA HEAD: Posterior Circulation: The intracranial left vertebral artery is dominant. The right vertebral artery does still contribute to basilar flow. No flow-limiting stenosis. The basilar artery is patent as are the adequately assessed vertebral and basilar artery branch vessels. Mainly just the P1 and P2 segments of both the posterior cerebral arteries are adequately assessed due to bolus timing. No flow-limiting stenosis or occlusion is identified. Anterior Circulation: Patent intracranial internal carotid arteries. No occlusion or flow-limiting stenosis of the central branches of either middle or anterior cerebral artery. Note is made that the more peripheral segments are difficult to closely evaluate due to bolus timing. No aneurysm is seen. Veins: Patent dural sinuses and major intracerebral veins. MISCELLANEOUS: No nodule at the upper lungs is seen that would warrant dedicated follow-up. Cervical spine findings fully detailed on the dedicated CT of this region. Left paramidline frontal lobe encephalomalacia with ex vacuo dilatation of the adjacent lateral ventricle as described on the unenhanced CT. Overlying craniotomy defect. No pathologic enhancement is appreciated in this region IMPRESSION: CT Angio Neck: 1. No hemodynamically significant stenosis or dissection of the extracranial carotid or vertebral arteries. 2. Predominantly noncalcified atheromatous plaque at the aortic arch with a small area of plaque ulceration at the arch. What is seen of the aorta is nonaneurysmal. CT Angio Head: 1. Limited assessment of the peripheral arterial segments due to bolus timing. There is no flow-limiting stenosis or occlusion of the central anterior or posterior cerebral circulation. 2. As detailed on the noncontrast CT head, left frontal craniotomy with subjacent encephalomalacia. Assessment/Plan Assessment/Plan Impression: Left frontal arteriovenous malformation resected 34 years ago Apparently he has seizures whenever he has a concussion, ever since and did so yesterday I think he is a little bit impulsive, consistent with left frontal lobe disease Recommendations: I considered MRI of the brain, I am worried about the metal in the resection site, most likely it is just stainless steel, but I think the risks outweigh the benefits. Levetiracetam for at least 6 months I instructed the patient that he cannot drive until he has gone 6 months without a seizure. Follow-up with me in 2 months Okay for discharge. Thank you for letting me help with the patient's care CASI CAMPO MD Jan 19, 2020 08:30
[2020-01-19] MEDS ORDERED: levETIRAcetam 500 MG TABLET PO SCH ×3 (09:00)
--- NOTE | 2020-01-19 09:16 | EKG ---
[facility] [address] [place] [address] Test Date: 2020-01-18 Test Time: 15:28:12 Pat Name: LOI ESQUIVEL Department: Room: Gender: M Admissions Dean: : [id number] Requested By: CHARLEE CAMEJO Order Number: [id number] Reading MD: Measurements Intervals [place]comb Rate: 104 P: 53 IL: 158 QRS: -26 QRSD: 80 T: 31 QT: 316 QTc: 416 Interpretive Statements SINUS TACHYCARDIA LEFTWARD AXIS OTHERWISE NORMAL ECG RI6.02 No previous ECG available for comparison
--- NOTE | 2020-01-19 09:23 | PDOC2 ---
JAEL BRADLEY BULLDOZER OPERATOR 01/19/20 0923: CARDIAC CONSULT DATE OF CONSULT Date of Consult DATE: 01/19/20 TIME: 09:18 REASON FOR CONSULT Reason for Consult: new afib REFERRING PHYSICIAN Referring Physician: Digna SOURCE Source: Chart review, Patient HISTORY OF PRESENT ILLNESS HISTORY OF PRESENT ILLNESS This is a pleasant 65 yo male admitted for complains of falling from a roof. Apparently he was repairing his roof and slipped from the ladder and fell. No trumatic injuries but fell and hit his head on the ground and had a concussion and may have had seizure onset afterwards. No syncope related to his fall. Denies any chest pain, SOA or palpitations at the time of his fall. Prior to it he denies any exertional CP, frequent dizziness or ROYAL. He has been treated by neurology and did have craniotomy in remote past due to cerebral AVM which was then repaired. He was about to be DC but he was noted with AFIB RVR which spontaneously resolved. He is currently in SR. No prior hx of CAD, VTE, or arrhythmias. He does howevere have features for MERLIN including some daytime somnolence, wide neck, obesity, and nightly snoring. PAST MEDICAL HISTORY Past Medical History Cardiovascular: HTN, Hyperlipidemia CENTRAL NERVOUS SYSTEM: Seizure, Other (Left frontal arteriovenous malformation) GI: GERD Musculoskeletal: low back pain, Other (Nasal fractures) Renal/: UTI, Benign prostatic enlarg. PAST SURGICAL HISTORY Past Surgical History (Left frontal craniotomy) FAMILY HISTORY Family History noncontributory SOCIAL HISTORY Smoke: Quit ALCOHOL: none Drugs: None Lives: with Family CURRENT MEDICATIONS CURRENT MEDICATIONS Current Medications Medications (Trade) Dose Ordered Sig/Raz Route PRN Reason Start Time Stop Time Status Last Admin Dose Admin Sodium Chloride 1,000 ml @ 1,000 mls/hr 1X ONCE IV 01/18/20 15:45 01/18/20 16:44 DC 01/18/20 16:17 Levetiracetam 1000 mg/Dextrose 110 ml @ 440 mls/hr 1X ONCE IV 01/18/20 16:00 01/18/20 16:14 DC 01/18/20 16:17 Iohexol (Omnipaque 350 Mg/ml) 70 ml 1X ONCE IV 01/18/20 16:15 01/18/20 16:16 DC 01/18/20 16:12 Sodium Chloride 1,000 ml @ 1,000 mls/hr 1X ONCE IV 01/18/20 16:45 01/18/20 17:44 DC 01/18/20 16:45 Sodium Chloride 1,000 ml @ 1,000 mls/hr 1X ONCE IV 01/18/20 16:45 01/18/20 17:44 DC 01/18/20 17:20 Heparin Sodium (Porcine) (Heparin Sodium) 5,000 unit Q8HRS SQ 01/18/20 22:00 01/19/20 06:18 Aspirin (Ecotrin) 325 mg DAILYWBKFT PO 01/19/20 08:00 01/19/20 08:24 Levetiracetam (Keppra) 500 mg Q12HR PO 01/19/20 09:00 01/19/20 08:31 DC 01/19/20 08:24 Hydralazine HCl (Apresoline Inj) 10 mg PRN Q4HRS PRN IVP ELEVATED BP, SEE COMMENTS 01/18/20 21:15 01/18/20 21:49 Amlodipine Besylate (Norvasc) 10 mg QHS PO 01/19/20 21:00 01/18/20 21:51 ALLERGIES ALLERGIES: Coded Allergies: No Known Drug Allergies (Unverified , 01/18/20) ROS Review of System 14 point ROS evaluated with pertinent positives noted per HPI PHYSICAL EXAM General: Alert, Oriented X3, Cooperative, No acute distress HEENT: Atraumatic, Mucous membr. moist/pink Lungs: Clear to auscultation, Normal air movement Heart: Other (2/6 systolic murmur to LLS border) Abdomen: Soft, No tenderness, Other (obese) Extremities: No cyanosis, No edema Skin: No breakdown, No significant lesion Neuro: Normal speech, Sensation intact Psych/Mental Status: Mental status NL, Mood NL MUSCULOSKELETAL: Osteoarthritic changes both hands VITALS/I&O VITALS/I&O: Vital Signs Date Time Temp Pulse Resp B/P (MAP) Pulse Ox O2 Delivery O2 Flow Rate FiO2 01/19/20 07:00 98.4 67 18 142/84 (103) 95 Room Air 98.4 01/18/20 16:21 2.0 I & O 01/18/20 01/18/20 01/19/20 15:00 23:00 07:00 Intake Total 590 ml 480 ml Output Total 200 ml 600 ml Balance 390 ml -120 ml LABS Lab: Laboratory Tests Test 01/18/20 15:28 01/18/20 15:35 01/19/20 00:30 01/19/20 04:30 Glucose (Fingerstick) 114 mg/dL (70-99) H White Blood Count 7.4 x10^3/uL (4.0-11.0) Red Blood Count 5.45 x10^6/uL (4.30-5.70) Hemoglobin 15.1 g/dL (13.0-17.5) Hematocrit 45.1 % (39.0-53.0) Mean Corpuscular Volume 83 fL (79-100) Mean Corpuscular Hemoglobin 28 pg (25-35) Mean Corpuscular Hemoglobin Concent 34 g/dL (31-37) Red Cell Distribution Width 15.1 % (11.5-14.5) H Platelet Count 210 x10^3/uL (140-400) Neutrophils (%) (Auto) 64 % (31-73) Lymphocytes (%) (Auto) 28 % (24-48) Monocytes (%) (Auto) 5 % (0-9) Eosinophils (%) (Auto) 2 % (0-3) Basophils (%) (Auto) 1 % (0-3) Neutrophils # (Auto) 4.7 x10^3/uL (1.8-7.7) Lymphocytes # (Auto) 2.1 x10^3/uL (1.0-4.8) Monocytes # (Auto) 0.4 x10^3/uL (0.0-1.1) Eosinophils # (Auto) 0.2 x10^3/uL (0.0-0.7) Basophils # (Auto) 0.1 x10^3/uL (0.0-0.2) Sodium Level 137 mmol/L (136-145) 139 mmol/L (136-145) Potassium Level 4.2 mmol/L (3.5-5.1) 3.9 mmol/L (3.5-5.1) Chloride Level 102 mmol/L (98-107) 105 mmol/L (98-107) Carbon Dioxide Level 25 mmol/L (21-32) 25 mmol/L (21-32) Anion Gap 10 (6-14) 9 (6-14) Blood Urea Nitrogen 15 mg/dL (8-26) 13 mg/dL (8-26) Creatinine 1.4 mg/dL (0.7-1.3) H 1.0 mg/dL (0.7-1.3) Estimated GFR (Cockcroft-Gault) 51.0 75.2 BUN/Creatinine Ratio 11 (6-20) Glucose Level 99 mg/dL (70-99) 102 mg/dL (70-99) H Lactic Acid Level 4.8 mmol/L (0.4-2.0) *H 1.8 mmol/L (0.4-2.0) Calcium Level 9.4 mg/dL (8.5-10.1) 8.6 mg/dL (8.5-10.1) Magnesium Level 2.2 mg/dL (1.8-2.4) Total Bilirubin 1.1 mg/dL (0.2-1.0) H Aspartate Amino Transferase (AST) 25 U/L (15-37) Alanine Aminotransferase (ALT) 20 U/L (16-63) Alkaline Phosphatase 81 U/L (46-116) Ammonia 15 mcmol/L (11-34) Creatine Kinase 186 U/L (39-308) Troponin I Quantitative < 0.017 ng/mL (0.000-0.055) Total Protein 7.6 g/dL (6.4-8.2) Albumin 3.8 g/dL (3.4-5.0) Albumin/Globulin Ratio 1.0 (1.0-1.7) Salicylates Level < 2.8 mg/dL (2.8-20.0) L Salicylate Last Dose Date Unknown Salicylate Last Dose Time Unknown Acetaminophen Level < 2 mcg/ml (10-30) L Acetaminophen Last Dose Date Unknown Acetaminophen Last Dose Time Unknown Ethyl Alcohol Level < 10 mg/dL (0-10) Phosphorus Level 2.6 mg/dL (2.6-4.7) Thyroid Stimulating Hormone (TSH) 0.569 uIU/mL (0.358-3.74) Triglycerides Level 97 mg/dL (0-150) Cholesterol Level 198 mg/dL (0-200) LDL Cholesterol, Calculated 147 mg/dL (0-100) H VLDL Cholesterol, Calculated 19 mg/dL (0-40) Non-HDL Cholesterol Calculated 166 mg/dL (0-129) H HDL Cholesterol 32 mg/dL (40-60) L Cholesterol/HDL Ratio 6.2 Laboratory Tests 01/18/20 15:35 Laboratory Tests 01/18/20 15:35 01/19/20 04:30 ASSESSMENT/PLAN ASSESSMENT/PLAN 1. PAFIB: new 2. Seizure 3. Mechanical fall with concussion 4. Cerebral AVM: S/P remote craniotomy 5. SHARAD resolve 6. HTN: controlled 7. HLP 8. Suspecting MERLIN Recommendations TTE MCOT ASA for stroke prevention. Likely not a candidate for anticoagulation with cerbral AVM hx Will need referral for [facility] outpt w/u Decrease home norvasc and start on low dose metoprolol Follow up in office will need [facility] Anticipate DC today SHAHRIAR MALDONADO MD 01/19/20 1615: CARDIAC CONSULT ASSESSMENT/PLAN ASSESSMENT/PLAN Pt. seen and examined. Agree with above [employer]LE[employer] SERVICE OFFICER note. Echo unremarkable. Plan as above. Thanks JAEL BRADLEY BULLDOZER OPERATOR Jan 19, 2020 09:23 SHAHRIAR MALDONADO MD Jan 19, 2020 16:15
[2020-01-19 11:00] VITALS: BP 138/80
--- NOTE | 2020-01-19 11:20 | NUR ---
SS following for discharge planning. SS reviewed pt chart and discussed with pt RN. Pt is from home with spouse and is currently on room air. Cardiology consulted. ECHO ordered. PT/OT/ST ordered. SS will continue to follow for discharge planning.
--- NOTE | 2020-01-19 12:29 | EKG ---
[facility] [address] [place] [address] Test Date: 2020-01-19 Test Time: 12:27:01 Pat Name: LOI ESQUIVEL Department: Room: 205 1 Gender: M Ict Analyst: GABBY : [id number] Requested By: CASI CAMPO Order Number: [id number] Reading MD: Measurements Intervals Ashley Rate: 65 P: 42 IL: 172 QRS: -30 QRSD: 80 T: 19 QT: 378 QTc: 394 Interpretive Statements SINUS RHYTHM ABNORMAL LEFT AXIS DEVIATION LEFT ANTERIOR FASCICULAR BLOCK ABNORMAL ECG RI6.02 Compared to ECG 01/18/2020 15:28:12 Left anterior fascicular block now present Sinus tachycardia no longer present
--- NOTE | 2020-01-19 13:37 | CARD ---
MR#: [id number] Date of Study: 01/19/2020 Ordering Physician: JAEL BRADLEY, Referring Physician: JAEL BRADLEY, Tech: Delphine Wilde KIP APPROVED REPORT EXAM: Two-dimensional and M-mode echocardiogram with Doppler and color Doppler. Other Information Quality : Good INDICATION Arrhythmia 2D DIMENSIONS RVDd3.2 (2.9-3.5cm)Left Atrium(2D)3.9 (1.6-4.0cm) IVSd1.0 (0.7-1.1cm)Aortic Root(2D)3.2 (2.0-3.7cm) LVDd4.8 (3.9-5.9cm)LVOT Diameter2.3 (1.8-2.4cm) PWd1.0 (0.7-1.1cm)LVDs2.8 (2.5-4.0cm) FS (%) 30.0 %SV80.0 ml Aortic Valve AoV Peak Jason.143.2cm/sAoV VTI26.4cm AO Peak GR.8.2mmHgLVOT Peak Jason.137.1cm/s AO Mean GR.5mmHgAVA (VMAX)3.84cm2 TORRES (VTI)3.46iu6VP P 1/2 [id number] Mitral Valve MV E Gplwbxpf19.7cm/sMV DECEL [id number] MV A Korlwczy45.0cm/sE/A Ratio1.1 Pulmonary Vein S1 Vcrryfhs73.6cm/sD2 Xmincpuy34.1cm/s LEFT VENTRICLE The left ventricle is normal size. There is normal left ventricular wall thickness. The left ventricu lar systolic function is normal and the ejection fraction is within normal range. The Ejection Fracti on is 55-60%. There is normal LV segmental wall motion. Transmitral Doppler flow pattern is Grade I-a bnormal relaxation pattern. RIGHT VENTRICLE The right ventricle is normal size. The right ventricular systolic function is normal. ATRIA The left atrium size is normal. The right atrium size is normal. The interatrial septum is intact wit h no evidence for an atrial septal defect or patent foramen ovale as noted on 2-D or Doppler imaging. AORTIC VALVE The aortic valve is calcified but opens well. Doppler and Color Flow revealed mild aortic regurgitati on. There is no significant aortic valvular stenosis. MITRAL VALVE The mitral valve is calcified but opens well. There is no evidence of mitral valve prolapse. There is no mitral valve stenosis. Doppler and Color Flow revealed trace mitral valve regurgitation. TRICUSPID VALVE The tricuspid valve is normal in structure and function. Doppler and Color Flow revealed no tricuspid valve regurgitation noted. There is no tricuspid valve stenosis. PULMONIC VALVE The pulmonic valve is not well visualized. Doppler and Color Flow revealed no pulmonic valvular regur gitation. There is no pulmonic valvular stenosis. GREAT VESSELS The aortic root is normal in size. The ascending aorta is mildly dilated at 3.5 cm. The IVC is normal in size and collapses >50% with inspiration. PERICARDIAL EFFUSION There is no evidence of significant pericardial effusion. Critical Notification Critical Value: No <Conclusion> The left ventricle is normal size. The left ventricular systolic function is normal and the ejection fraction is within normal range. The Ejection Fraction is 55-60%. Doppler and Color Flow revealed mild aortic regurgitation. There is no significant aortic valvular stenosis. Doppler and Color Flow revealed trace mitral valve regurgitation. Doppler and Color Flow revealed no tricuspid valve regurgitation noted. The ascending aorta is mildly dilated at 3.5 cm. Signed by : Trenton Steen MD Electronically Approved : 01/19/2020 13:36:50
[2020-01-19] MEDS ORDERED: amLODIPine BESYLATE 5 MG TABLET PO PRN (14:00)
[2020-01-19] MEDS ORDERED: LEVE500T56 PO (14:01)
[2020-01-19] MEDS ORDERED: AMLO5TAB10 PO (14:01)
[2020-01-19] MEDS ORDERED: ATOR10TA60 PO (14:01)
[2020-01-19] MEDS ORDERED: ASPI325T11 PO (14:01)
[2020-01-19] MEDS ORDERED: METO25TA4 PO (14:01)
--- NOTE | 2020-01-19 14:08 | PDOC3 ---
Discharge Summary Visit Information Date of Admission: Jan 18, 2020 Date of Discharge: Jan 19, 2020 Admitting Diagnosis Comment: Seizure - recurrent. given IV keppra. He was remotely on dilantin and is not opposed to this, however at this time no further seizures, will cont keppra and consult neurology Acute encephalopathy - likely post-ictal confusion Right sided weakness - likely post-ictal effect. CTA head and neck negative for occlusion. 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 No indication for tPA as his symptoms resolved Acute Renal insufficiency - likely vasomotor nephropathy, will hydrate H/o craniotomy - he and his note this was for removal of an AVM in the 1980s and he did begin having seizures after that Elevated lactic acid level - almost certainly seizure related, will trend HTN - will reconcile home medications with pharmacy and continue Final Diagnosis Problems Medical Problems: (1) Elevated lactic acid level Status: Acute (2) Head trauma Status: Acute (3) Old cerebrovascular accident (CVA) without late effect Status: Acute (4) Renal insufficiency Status: Acute (5) Seizure Status: Acute Brief Hospital Course Allergies Allergies Coded Allergies Type Severity Reaction Last Updated Verified No Known Drug Allergies 01/18/20 No Vital Signs Vital Signs Date Time Temp Pulse Resp B/P (MAP) Pulse Ox O2 Delivery O2 Flow Rate FiO2 01/19/20 11:00 98.5 74 18 138/80 (99) 97 Room Air 98.5 01/19/20 08:00 2.0 Lab Results Laboratory Tests Test 01/18/20 15:28 01/18/20 15:35 01/19/20 00:30 01/19/20 04:30 Glucose (Fingerstick) 114 mg/dL (70-99) White Blood Count 7.4 x10^3/uL (4.0-11.0) Red Blood Count 5.45 x10^6/uL (4.30-5.70) Hemoglobin 15.1 g/dL (13.0-17.5) Hematocrit 45.1 % (39.0-53.0) Mean Corpuscular Volume 83 fL (79-100) Mean Corpuscular Hemoglobin 28 pg (25-35) Mean Corpuscular Hemoglobin Concent 34 g/dL (31-37) Red Cell Distribution Width 15.1 % (11.5-14.5) Platelet Count 210 x10^3/uL (140-400) Neutrophils (%) (Auto) 64 % (31-73) Lymphocytes (%) (Auto) 28 % (24-48) Monocytes (%) (Auto) 5 % (0-9) Eosinophils (%) (Auto) 2 % (0-3) Basophils (%) (Auto) 1 % (0-3) Neutrophils # (Auto) 4.7 x10^3/uL (1.8-7.7) Lymphocytes # (Auto) 2.1 x10^3/uL (1.0-4.8) Monocytes # (Auto) 0.4 x10^3/uL (0.0-1.1) Eosinophils # (Auto) 0.2 x10^3/uL (0.0-0.7) Basophils # (Auto) 0.1 x10^3/uL (0.0-0.2) Sodium Level 137 mmol/L (136-145) 139 mmol/L (136-145) Potassium Level 4.2 mmol/L (3.5-5.1) 3.9 mmol/L (3.5-5.1) Chloride Level 102 mmol/L (98-107) 105 mmol/L (98-107) Carbon Dioxide Level 25 mmol/L (21-32) 25 mmol/L (21-32) Anion Gap 10 (6-14) 9 (6-14) Blood Urea Nitrogen 15 mg/dL (8-26) 13 mg/dL (8-26) Creatinine 1.4 mg/dL (0.7-1.3) 1.0 mg/dL (0.7-1.3) Estimated GFR (Cockcroft-Gault) 51.0 75.2 BUN/Creatinine Ratio 11 (6-20) Glucose Level 99 mg/dL (70-99) 102 mg/dL (70-99) Lactic Acid Level 4.8 mmol/L (0.4-2.0) 1.8 mmol/L (0.4-2.0) Calcium Level 9.4 mg/dL (8.5-10.1) 8.6 mg/dL (8.5-10.1) Magnesium Level 2.2 mg/dL (1.8-2.4) Total Bilirubin 1.1 mg/dL (0.2-1.0) Aspartate Amino Transf (AST/SGOT) 25 U/L (15-37) Alanine Aminotransferase (ALT/SGPT) 20 U/L (16-63) Alkaline Phosphatase 81 U/L (46-116) Ammonia 15 mcmol/L (11-34) Creatine Kinase 186 U/L (39-308) Troponin I Quantitative < 0.017 ng/mL (0.000-0.055) Total Protein 7.6 g/dL (6.4-8.2) Albumin 3.8 g/dL (3.4-5.0) Albumin/Globulin Ratio 1.0 (1.0-1.7) Salicylates Level < 2.8 mg/dL (2.8-20.0) Salicylate Last Dose Date Unknown Salicylate Last Dose Time Unknown Acetaminophen Level < 2 mcg/ml (10-30) Acetaminophen Last Dose Date Unknown Acetaminophen Last Dose Time Unknown Ethyl Alcohol Level < 10 mg/dL (0-10) Phosphorus Level 2.6 mg/dL (2.6-4.7) Thyroid Stimulating Hormone (TSH) 0.569 uIU/mL (0.358-3.74) Triglycerides Level 97 mg/dL (0-150) Cholesterol Level 198 mg/dL (0-200) LDL Cholesterol, Calculated 147 mg/dL (0-100) VLDL Cholesterol, Calculated 19 mg/dL (0-40) Non-HDL Cholesterol Calculated 166 mg/dL (0-129) HDL Cholesterol 32 mg/dL (40-60) Cholesterol/HDL Ratio 6.2 Laboratory Tests Test 01/18/20 15:28 01/18/20 15:35 01/19/20 00:30 01/19/20 04:30 Glucose (Fingerstick) 114 mg/dL (70-99) White Blood Count 7.4 x10^3/uL (4.0-11.0) Red Blood Count 5.45 x10^6/uL (4.30-5.70) Hemoglobin 15.1 g/dL (13.0-17.5) Hematocrit 45.1 % (39.0-53.0) Mean Corpuscular Volume 83 fL (79-100) Mean Corpuscular Hemoglobin 28 pg (25-35) Mean Corpuscular Hemoglobin Concent 34 g/dL (31-37) Red Cell Distribution Width 15.1 % (11.5-14.5) Platelet Count 210 x10^3/uL (140-400) Neutrophils (%) (Auto) 64 % (31-73) Lymphocytes (%) (Auto) 28 % (24-48) Monocytes (%) (Auto) 5 % (0-9) Eosinophils (%) (Auto) 2 % (0-3) Basophils (%) (Auto) 1 % (0-3) Neutrophils # (Auto) 4.7 x10^3/uL (1.8-7.7) Lymphocytes # (Auto) 2.1 x10^3/uL (1.0-4.8) Monocytes # (Auto) 0.4 x10^3/uL (0.0-1.1) Eosinophils # (Auto) 0.2 x10^3/uL (0.0-0.7) Basophils # (Auto) 0.1 x10^3/uL (0.0-0.2) Sodium Level 137 mmol/L (136-145) 139 mmol/L (136-145) Potassium Level 4.2 mmol/L (3.5-5.1) 3.9 mmol/L (3.5-5.1) Chloride Level 102 mmol/L (98-107) 105 mmol/L (98-107) Carbon Dioxide Level 25 mmol/L (21-32) 25 mmol/L (21-32) Anion Gap 10 (6-14) 9 (6-14) Blood Urea Nitrogen 15 mg/dL (8-26) 13 mg/dL (8-26) Creatinine 1.4 mg/dL (0.7-1.3) 1.0 mg/dL (0.7-1.3) Estimated GFR (Cockcroft-Gault) 51.0 75.2 BUN/Creatinine Ratio 11 (6-20) Glucose Level 99 mg/dL (70-99) 102 mg/dL (70-99) Lactic Acid Level 4.8 mmol/L (0.4-2.0) 1.8 mmol/L (0.4-2.0) Calcium Level 9.4 mg/dL (8.5-10.1) 8.6 mg/dL (8.5-10.1) Magnesium Level 2.2 mg/dL (1.8-2.4) Total Bilirubin 1.1 mg/dL (0.2-1.0) Aspartate Amino Transf (AST/SGOT) 25 U/L (15-37) Alanine Aminotransferase (ALT/SGPT) 20 U/L (16-63) Alkaline Phosphatase 81 U/L (46-116) Ammonia 15 mcmol/L (11-34) Creatine Kinase 186 U/L (39-308) Troponin I Quantitative < 0.017 ng/mL (0.000-0.055) Total Protein 7.6 g/dL (6.4-8.2) Albumin 3.8 g/dL (3.4-5.0) Albumin/Globulin Ratio 1.0 (1.0-1.7) Salicylates Level < 2.8 mg/dL (2.8-20.0) Salicylate Last Dose Date Unknown Salicylate Last Dose Time Unknown Acetaminophen Level < 2 mcg/ml (10-30) Acetaminophen Last Dose Date Unknown Acetaminophen Last Dose Time Unknown Ethyl Alcohol Level < 10 mg/dL (0-10) Phosphorus Level 2.6 mg/dL (2.6-4.7) Thyroid Stimulating Hormone (TSH) 0.569 uIU/mL (0.358-3.74) Triglycerides Level 97 mg/dL (0-150) Cholesterol Level 198 mg/dL (0-200) LDL Cholesterol, Calculated 147 mg/dL (0-100) VLDL Cholesterol, Calculated 19 mg/dL (0-40) Non-HDL Cholesterol Calculated 166 mg/dL (0-129) HDL Cholesterol 32 mg/dL (40-60) Cholesterol/HDL Ratio 6.2 Brief Hospital Course History of Present Illness Mr Coulter is a 65-year-old male w/ PMHx HTN and remote seizures every few years after craniotomy for AVM in the who presents to the ED brought in by EMS after family called 911. EMS was called 3 times. Initially he had fallen off a ladder and struck his head, and EMS assessed no neurological problems patient refused to the ED. Minutes after EMS left with his went to the house she returned to see him shaking on the ground, all 4 limbs and he was not able to respond to her, but EMS noted no seizure activity. And he was resting. His then contacted EMS for the third time when he was noted with significant altered mental status, EMS witnessed a 2-minute seizure that resolved with 5 mg of IV Versed. Glucose was 114. His noted he had complained of hip pain he underwent hip x-ray chest x-ray and CT neck all of which had no acute abnormalities. CT head revealed craniotomy defect and Left paramidline frontal lobe encephalomalacia with ex vacuo dilatation of the adjacent lateral ventricle. CT angiography of head and neck performed as he was noted with some initial r ight-sided weakness on initial evaluation. EKG showed sinus tachycardia at 104 bpm, left axis deviation, normal intervals, no T wave inversions, no ST elevations or ST depressions. Labs revealed lactic acid of 4.8, normal CBC, NA 137, K4.2, BUN 15, CR 1.4, glucose 114. On my evaluation he shows some mental slowing but is alert and oriented to location month year to date and person. He had no focal neurologic deficits. His is bedside to corroborate he is a bit slow but close to what she considers baseline. She and he also note that he has been having random seizures every year or two for the past 30 years and was only dilantin until 20 years ago when he went 1 year seizure free. He was instructed to stop drinking alcohol previously as it was thought this provoked some of his other seizures, but he has not drank alcohol for "years" now. He has not noted lack of sleep recently. He is an honorably discharged [employer] and retired [employer] worker as well as an ex-smoker for more than a decade. Admitted for further care. Patient presented atrial fibrillation while he was inpatient and was evaluated b y cardiology. He had an echocardiogram with normal left ventricular systolic function with an EF of 55 to 60% mild aortic regurgitation no significant aortic valvular stenosis. The patient had trace mitral valve regurgitation and no tricuspid valve regurgitation was noted the ascending aorta was mildly dilated at 3.5. Patient was seen in consultation by Dr. Maciel with the neurology services and he recommended at least 6 months of Keppra. He was started on the medication while inpatient and has tolerated the medication well. No new events were noted during her hospital stay business consultant pointed out that he has features of obstructive sleep apnea given the daytime somnolence reported to them with wide neck obesity and nightly snoring. Of note is that the patient had an AVM several years ago and this was resected patient has a craniotomy. The A. fib with RVR spontaneously resolved and the patient will likely need a an outpatient monitor placed. We will request primary care to send a referral for establishing care with either Dr. Tanja avelar or Dr. Harrington here at the hospital in order to have this monitor placed. He was deemed appropriate for discharge from the medical social consultant standpoint of view with Malcolm and outpatient set up for his monitor will be done moving forward. Greater than 35 minutes were spent in the discharge process the patient counseling coordination of care and arrangements for a safe discharge Assessment Assessment ECHO The left ventricle is normal size. The left ventricular systolic function is normal and the ejection fraction is within normal range. The Ejection Fraction is 55-60%. Doppler and Color Flow revealed mild aortic regurgitation. There is no significant aortic valvular stenosis. Doppler and Color Flow revealed trace mitral valve regurgitation. Doppler and Color Flow revealed no tricuspid valve regurgitation noted. The ascending aorta is mildly dilated at 3.5 cm. Signed by : Trenton Steen MD Electronically Approved : 01/19/2020 13:36:50 PHYSICAL EXAM General: Alert, Oriented X3, Cooperative, No acute distress HEENT: Atraumatic, Mucous membr. moist/pink Lungs: Clear to auscultation, Normal air movement Heart: Other (2/6 systolic murmur to LLS border) Abdomen: Soft, No tenderness, Other (obese) Extremities: No cyanosis, No edema Skin: No breakdown, No significant lesion Neuro: Normal speech, Sensation intact Psych/Mental Status: Mental status NL, Mood NL MUSCULOSKELETAL: Osteoarthritic changes both hands Discharge Information Condition at Discharge: Improved Follow Up: Weeks Disposition/Orders: D/C to Home Scheduled Amlodipine Besylate (Amlodipine Besylate) 5 Mg Tablet, 5 MG PO QHS for htn for 30 Days, #30 Prescribed by: DANNY SHAIKH MD on 01/19/20 1401 Aspirin (Aspirin Ec) 325 Mg Tablet.dr, 325 MG PO DAILYWBKFT for anti platelet for 30 Days, #30 Prescribed by: DANNY SHAIKH MD on 01/19/20 1401 Atorvastatin Calcium (Atorvastatin Calcium) 10 Mg Tablet, 1 TAB PO DAILY for dyslipidemia, #30 Ref 5 Prescribed by: DANNY SHAIKH MD on 01/19/20 1401 Calcium Carbonate (Calcium) 500 Mg Tablet, 500 MG PO DAILY for supplement, (Reported) Entered as Reported by: Janis Garcia on 8/20/20 2130 Last Action: New Order on 01/18/202129 by Janis Garcia Levetiracetam (Keppra) 500 Mg Tablet, 500 MG PO BID for seizure disorder for 30 Days, #60 Prescribed by: DANNY SHAIKH MD on 01/19/20 1401 Lisinopril (Lisinopril) 40 Mg Tablet, 40 MG PO DAILY for FOR HYPERTENSION, #2 Ref 0 (Reported) Entered as Reported by: Janis Garcia on 01/18/202129 Last Action: New Order on 01/18/202129 by Janis Garcia Magnesium Oxide (Magnesium) 400 Mg Tablet, 400 MG PO DAILY for supplement, (Reported) Entered as Reported by: Janis Garcia on 01/18/202129 Last Action: New Order on 01/18/202129 by Janis Garcia Metoprolol Tartrate (Metoprolol Tartrate) 25 Mg Tablet, 12.5 MG PO BID for rate control for 30 Days, #30 Prescribed by: DANNY SHAIKH MD on 01/19/20 1401 Scheduled PRN Pantoprazole Sodium (Protonix) 20 Mg Tablet.dr, 20 MG PO DAILY PRN for GI SYMPTOMS, #2 (Reported) Entered as Reported by: Janis Garcia on 01/18/202129 Last Action: New Order on 01/18/202129 by Janis Garcia Justicifation of Admission Dx: Justifications for Admission: Justification of Admission Dx: Yes Stroke - Ischemic: Stroke-Ischemic DANNY SHAIKH MD Jan 19, 2020 14:08
[2020-01-19 14:51] VITALS: BP 120/76
--- NOTE | 2020-01-19 15:23 | NUR ---
Discharged patient to home. Discharge instructions given. PIV and heart monitor removed. Escorted patient per wheelchair off unit into a private vehicle.
[2020-01-19] MEDS ORDERED: METOPROLOL TART IMMED RELEASE 25 MG TABLET. PO SCH (21:00)
[2020-01-19] MEDS ORDERED: amLODIPine BESYLATE 5 MG TABLET PO SCH ×2 (21:00)
== END 2020-01-19 15:20 | disposition home or self-care (01) | DRG 100 ==
LOC: ER 15:20 → ED HOLD 18:02 → 2 NORTH 19:16
PROVIDERS: ADMIT Internal Medicine; ATTEND Internal Medicine
DX: G40.909 Epilepsy, unspecified, not intractable, without status epilepticus (principal); N17.0 Acute kidney failure with tubular necrosis; Q28.2 Arteriovenous malformation of cerebral vessels; S06.0X9A Concussion with loss of consciousness of unspecified duration, initial encounter; G93.40 Encephalopathy, unspecified; R47.01 Aphasia; E66.9 Obesity, unspecified; E78.5 Hyperlipidemia, unspecified; G47.33 Obstructive sleep apnea (adult) (pediatric); G93.89 Other specified disorders of brain; I10 Essential (primary) hypertension; I48.0 Paroxysmal atrial fibrillation; M19.90 Unspecified osteoarthritis, unspecified site; W11.XXXA Fall on and from ladder, initial encounter; W13.2XXA Fall from, out of or through roof, initial encounter; Z82.49 Family history of ischemic heart disease and other diseases of the circulatory system; Z82.5 Family history of asthma and other chronic lower respiratory diseases; Z86.73 Personal history of transient ischemic attack (TIA), and cerebral infarction without residual deficits; Z87.891 Personal history of nicotine dependence; K21.9 Gastro-esophageal reflux disease without esophagitis
CPT/HCPCS: 36415; 70450; 70496; 70498; 71045; 72125; 72170; 80048; 80053; 80061; 80329; 82140; 82550; 82962; 83605; 83735; 84100; 84443; 84484; 85025; 87040; 93005; 93306; 96365; G0480; J0360; J1644; J1953; J7030; J7060; Q9967; 97535-GO; 99285-25; G0378